=== PATIENT | male | born 1950 | race African-American/Black ===

== ENCOUNTER 2019-04-03 14:16 | Emergency (ER) | payer MEDICARE, OTHER ==
[2019-04-03] MEDS ORDERED: diphenhydrAMINE 25 MG CAP ONE (15:01)
[2019-04-03] MEDS ORDERED: Dexamethasone 4 mg/ml Vial ONE (15:01)
== END 2019-04-03 15:10 | disposition home or self-care (01) ==
LOC: ERS 14:16
DX: T63.441A Toxic effect of venom of bees, accidental (unintentional), initial encounter (principal); E78.5 Hyperlipidemia, unspecified; I10 Essential (primary) hypertension
CPT/HCPCS: 99283; J1100; Q0163

== ENCOUNTER 2020-09-10 14:10 | Outpatient (CLI) | payer MEDICARE | END 2020-09-10 14:11 | disposition home or self-care (01) | LOC: BICULT 14:10 | PROVIDERS: ATTEND Family Medicine | DX: R97.20 Elevated prostate specific antigen [PSA] (principal) | CPT/HCPCS: 76770 ==